=== PATIENT | female | born 1990 | race Caucasian/White ===

== ENCOUNTER 2025-03-14 10:31 | Emergency (ER) | payer SELFPAY ==
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
--- OUTSIDE RECORDS SUMMARY | 2025-03-14 10:32 | XMS_ITS | Clinical Summary ---
Author Organization [facility] [employer] Address [address] [place] [address] Care Team Providers Care Manager Global Communications Name Role Phone Unavailable Primary Care Provider Unavailabl e Source Comments [facility] [employer]non-owned Affiliates and Associated Physician Practices is amultiple site organization consisting of ambulatory clinics and hospital sitesin [place], [place], [place] and [place]. This disclosure is being madepursuant to the Care Everywhere program and may not contain all information available regarding this patient. Last updated 18.[facility] [employer] Allergies No known active allergies Medications * Be aware that medications may not be up to date on this document. Alwaysverify current medications with the patient. No known medications Social History Tobacco Use Types Packs/Day Years Used Date Smoking Tobacco: Former Cigarettes Q uit: 2018 Smokeless Tobacco: Never Comments:quit 1month ago Comments No Sex and Gender Information Value Date Recorded Sex Assigned at Not on file Legal Sex Female 4:12 PM CONSULTING TECHNICAL DIRECTOR Gender Identity Not on file Sexual Orientation Not on file Last Filed Vital Signs Vital Sign Reading Time Taken Comments Blood Pressure 102/60 10/25/2017 5:44 PM CONSULTING TECHNICAL DIRECTOR Pulse 65 10/25/2017 5:44 PM CONSULTING TECHNICAL DIRECTOR Temperature 36.6 C (97.9 F) 10/25/2017 5:44 PM CONSULTING TECHNICAL DIRECTOR Respiratory Rate 14 10/25/2017 5:44 PM CONSULTING TECHNICAL DIRECTOR Oxygen Saturation 98% 10/25/2017 5:44 PM CONSULTING TECHNICAL DIRECTOR Inhaled Oxygen Concentration - - Weight 63.5 kg (140 lb) 10/25/2017 5:44 PM CONSULTING TECHNICAL DIRECTOR Height 163.8 cm (5' 4.5) 10/25/2017 5:44 PM CONSULTING TECHNICAL DIRECTOR Body Mass Index 23.66 10/25/2017 5:44 PM CONSULTING TECHNICAL DIRECTOR Plan of Treatment Health Maintenance Due Date Last Done Comments HIV SCREENING 11/19/2007 HEPATITIS C SCREENING 11/14/2010 DTAP/TDAP/TD VACCINES (1 - Tdap) 11/19/2011 HEPATITIS B VACCINE (1 of 3 - 19+ 3-dose series) 11/19/2011 HPV VACCINE (1 - 3-dose SCDM series) 11/19/2019 COVID-19 VACCINE (1 - 2023-2 5 season) 2024 DEPRESSION SCREENING 08/19/2024 INFLUENZA VACCINE (#1) 2025 ZOSTER VACCINE (1 of 2) 2042 HIB VACCINE Aged Out No longer eligi ble based on patient's age to complete this topic MENINGOCOCCAL (Group B) VACC INE SHARED DECISION-MAKING Aged Out No longer eligibl e based on patient's age to complete this topic MENINGOCOCCAL GROUPS A/C/Y/W VACCINE Aged Out No longer eligible b ased on patient's age to complete this topic PNEUMOCOCCAL VACCINE Aged Out No long er eligible based on patient's age to complete this topic Insurance
[2025-03-14 10:43] VITALS: BP 112/74; PULSE 90; RESP 19; TEMP 36.6; O2SAT 99
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
--- OUTSIDE RECORDS SUMMARY | 2025-03-14 11:09 | XMS_ITS | Clinical Summary ---
Author Organization [facility] [employer] Address [address] [place] [address] Care Team Providers Care Exhibit Builder Name Role Phone Unavailable Primary Care Provider Unavailabl e Source Comments [facility] [employer],non-owned Affiliates and Associated Physician Practices is amultiple site organization consisting of ambulatory clinics and hospital sitesin [place]. This disclosure is being madepursuant to the Care Everywhere program and may not contain all information available regarding this patient. Last updated 18.[facility] [employer] Allergies No known active allergies Medications * [...] on file Legal Sex Female 4:12 PM FLIGHT TEST ENGINEER Gender Identity Not on file Sexual Orientation Not on file Last Filed Vital Signs Vital Sign Reading Time Taken Comments Blood Pressure 102/60 10/25/2017 5:44 PM FLIGHT TEST ENGINEER Pulse 65 10/25/2017 5:44 PM FLIGHT TEST ENGINEER Temperature 36.6 C (97.9 F) 10/25/2017 5:44 PM FLIGHT TEST ENGINEER Respiratory Rate 14 10/25/2017 5:44 PM FLIGHT TEST ENGINEER Oxygen Saturation 98% 10/25/2017 5:44 PM FLIGHT TEST ENGINEER Inhaled Oxygen Concentration - - Weight 63.5 kg (140 lb) 10/25/2017 5:44 PM FLIGHT TEST ENGINEER Height 163.8 cm (5' 4.5) 10/25/2017 5:44 PM FLIGHT TEST ENGINEER Body Mass Index 23.66 10/25/2017 5:44 PM FLIGHT TEST ENGINEER Plan of Treatment Health Maintenance Due Date [...]
== END 2025-03-14 13:10 | disposition home or self-care (01) ==
PROVIDERS: Emergency Provider Emergency Medicine; PCP Nurse Practitioner Family
DX: S02.40DA Maxillary fracture, left side, initial encounter for closed fracture (principal); S02.32XA Fracture of orbital floor, left side, initial encounter for closed fracture; Y00.XXXA Assault by blunt object, initial encounter
CPT/HCPCS: 70450; 70486; 72125; 99284; A9270